=== PATIENT | male | born 2000 | race Caucasian/White ===

== ENCOUNTER 2023-03-28 20:37 | Emergency (ER) | payer OTHER, SELFPAY ==
--- NOTE | ~2023-03-28 | CT_ITS ---
EXAMINATION: CT brain wo con, CT facial bones wo con DATE: 03/28/2023 21:21 INDICATION: Head and facial injury post fall TECHNIQUE: 1. Computed tomography (CT) of the head was performed without intravenous contrast. Sagittal and eli nal reconstructions were obtained. The dose-length product was 681.0 mGy-cm. 2. CT of the facial bones and maxillofacial region was performed without intravenous contrast. Sagitt al and coronal reconstructions were obtained. The dose-length product was 346.52 mGy-cm. COMPARISON: None. FINDINGS: Head CT: No calvarial fracture. No acute intracranial hemorrhage, acute infarction or abnormal extra axial flu id collection. Ventricles are normal and symmetric. No mass/mass effect. Maxillofacial CT: Small anterior left frontal scalp hematoma. No maxillofacial fractures. Orbits are normal. Mild mucos al thickening the bilateral ethmoid sinuses with small osteoma in the right ethmoid sinus. Left masto iditis hyperpneumatized with small effusion. Right mastoid and bilateral middle ear cavities are allan r. Visualized portion of the cervical spine is unremarkable. IMPRESSION: 1. Normal brain. No acute intracranial process. 2. No calvarial or maxillofacial fractures. Reviewed, dictated and finalized at location A. IMPRESSION: 1. Normal brain. No acute intracranial process. 2. No calvarial or maxillofacial fractures.
[2023-03-28 20:36] VITALS: BP 149/82; PULSE 97; RESP 19; TEMP 36.7; O2SAT 100
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
[2023-03-28 23:15] VITALS: BP 136/90; PULSE 84; RESP 22; TEMP 36.8; O2SAT 100
== END 2023-03-28 23:21 | disposition home or self-care (01) ==
PROVIDERS: Emergency Provider Emergency Medicine
DX: S01.81XA Laceration without foreign body of other part of head, initial encounter (principal); S60.512A Abrasion of left hand, initial encounter; S60.511A Abrasion of right hand, initial encounter; S00.81XA Abrasion of other part of head, initial encounter; S80.212A Abrasion, left knee, initial encounter; S80.211A Abrasion, right knee, initial encounter; S50.312A Abrasion of left elbow, initial encounter; S50.311A Abrasion of right elbow, initial encounter; V18.0XXA Pedal cycle driver injured in noncollision transport accident in nontraffic accident, initial encounter; Y93.55 Activity, bike riding
CPT/HCPCS: 12013; 70450; 70486; 99284

== ENCOUNTER 2023-08-04 08:31 | Emergency (ER) | payer OTHER, SELFPAY ==
[2023-08-04 08:42] VITALS: BP 136/70; PULSE 94; RESP 18; TEMP 37.1; O2SAT 99
--- NOTE | 2023-08-04 09:10 | ED.GENADULT ---
HPI - General Adult General Chief complaint: Upper Respiratory Infection Stated complaint: Sore Throat Source: patient Mode of arrival: ambulatory Limitations: no limitations History of Present Illness HPI narrative: Patient presents for evaluation of sore throat for last two days. He reports a fever, for which he has taken tylenol and ibuprofen. The medications have helped the fever but not the sore throat. No chills, nausea, vomiting, otalgia, cough, shortness of breath. No recent sick contacts to his knowledge. He does not smoke. Related Data Allergies Allergy/AdvReac Type Severity Reaction Status Date / Time No Known Allergies Allergy Verified 08/04/23 08:37 Review of Systems Review of Systems: CONSTITUTIONAL:Reports fever. Denies chills, or sweats. EYES: Denies visual changes, redness, or discharge. ENT: Reports sore throat. Denies rhinorrhea, congestion, or otalgia. CARDIOVASCULAR: Denies chest pain, palpitations, or edema. RESPIRATORY: Denies cough or dyspnea. GASTROINTESTINAL: Denies abdominal pain, nausea, vomiting, or diarrhea. GENITOURINARY: Denies dysuria or hematuria. SKIN: Denies rash or itching. MUSCULOSKELETAL: Denies back pain, joint pain, or myalgia. NEUROLOGIC: Denies headache, numbness, dizziness, or weakness. PSYCHIATRIC: Denies anxiety or depression. PMFSH Past Medical History Medical History No pertinent past medical history Surgical History Surgical History No pertinent past surgical history Family History Family History Mother Family history non-contributory Social History Social History Smoking status: Never smoker Substance use: never Living arrangements: with family Gender identity (if verbalized by the patient): Male Spiritual care concerns: No Exam Narrative: GENERAL: Well-appearing, well-nourished, and in no acute distress. HEAD: Normocephalic, atraumatic. EYES: PERRLA and EOMI. ENT: Nares clear, no rhinorrhea or epistaxis. Mucous membranes moist. Posterior pharyngeal erythema without exudate. Uvula is midline. Bilateral TMs pearly mcghee nonbulging NECK: Supple. No adenopathy or masses. No carotid bruits or JVD CHEST: Clear to auscultation. No respiratory distress. No wheezes rales or rhonchi HEART: Regular rate and rhythm. No murmur heard. Normal peripheral pulses. ABDOMEN: Soft, nontender, nondistended, normal active bowel sounds. EXTREMITIES: Normal range of motion. No edema. SKIN: Warm, dry, no rash. NEURO: No focal deficits. Alert and oriented x3. PSYCH: Normal mood and affect. Course Course Emergency Course: This is a 23-year-old male who presented for evaluation of sore throat. Rapid strep negative. Through shared decision making opted to proceed with amoxicillin therapy. Increase hydration. [id number] agents for symptom management. Follow up with primary provider. Go to the ER for worsening symptoms. Pt in agreement with plan of care. Level of Care: Express Care Visit Vital Signs Vital signs: Vital Signs Temperature 37.1 C 08/04/23 08:42 Pulse Rate 94 08/04/23 08:42 Respiratory Rate 18 08/04/23 08:42 Blood Pressure 136/70 08/04/23 08:42 Pulse Oximetry 99 08/04/23 08:42 Oxygen Delivery Room Air 08/04/23 08:42 Temperature 37.1 C 08/04/23 08:42 Pulse Rate 94 08/04/23 08:42 Respiratory Rate 18 08/04/23 08:42 Blood Pressure 136/70 08/04/23 08:42 Pulse Oximetry 99 08/04/23 08:42 Oxygen Delivery Room Air 08/04/23 08:42 Medical Decision Making Vital Signs Vital Signs: Vital Signs Temperature 37.1 C 08/04/23 08:42 Pulse Rate 94 08/04/23 08:42 Respiratory Rate 18 08/04/23 08:42 Blood Pressure 136/70 08/04/23 08:42 P
== END 2023-08-04 09:10 | disposition home or self-care (01) ==
PROVIDERS: Emergency Provider Nurse Practitioner
DX: J02.9 Acute pharyngitis, unspecified (principal)
CPT/HCPCS: 87081; 87880; 99213; G0463